=== PATIENT | male | born 1980 | race American Indian/Alaskan Native ===

== ENCOUNTER 2019-03-10 03:37 | Emergency (ER) | payer SELFPAY ==
[2019-03-10] MEDS ORDERED: ZOFRAN IV STA (05:13)
[2019-03-10] MEDS ORDERED: MORPHINE IV STA (05:13)
--- NOTE | 2019-03-10 05:48 | Cat Scan Report ---
CT HEAD WITHOUT CONTRAST INDICATION / CLINICAL INFORMATION: MAIN: Headache, Facial contusion and swelling. TECHNIQUE: All CT scans at this location are performed using CT dose reduction for ALARA by means of automated e xposure control. COMPARISON: None available. FINDINGS: HEMORRHAGE: None. EXTRA-AXIAL SPACES: Normal in size and morphology for the patient's age. VENTRICULAR SYSTEM: Normal in size and morphology for the patient's age. CEREBRAL PARENCHYMA: No significant abnormality. No acute territorial infarct. MIDLINE SHIFT OR HERNIATION: None. CEREBELLUM / BRAINSTEM: No significant abnormality. ORBITS: Normal as visualized. SOFT TISSUES of HEAD: No significant abnormality. CALVARIUM: No significant abnormality. PARANASAL SINUSES / MASTOID AIR CELLS: Normal as visualized. ADDITIONAL FINDINGS: None. IMPRESSION: 1. No acute intracranial abnormality. Signer Name: René Wilson MD Signed: 03/10/2019 5:44 AM Workstation Name: [id number]
--- NOTE | 2019-03-10 05:50 | Cat Scan Report ---
CT MAXILLOFACIAL WITHOUT CONTRAST INDICATION / CLINICAL INFORMATION: MAIN: HEADACHE, FACIAL CONTUSION AND SWELLING. TECHNIQUE: All CT scans at this location are performed using CT dose reduction for ALARA by means of automated e xposure control. COMPARISON: None available. FINDINGS: FACIAL BONES: No fracture or other significant abnormality. PARANASAL SINUSES: No significant abnormality. ORBITS: No significant abnormality. VISUALIZED INTRACRANIAL STRUCTURES: No significant abnormality. ADDITIONAL FINDINGS: None. IMPRESSION: 1. No significant abnormality. Signer Name: René Wilson MD Signed: 03/10/2019 5:46 AM Workstation Name: [id number]
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
== END 2019-03-10 06:40 | disposition home or self-care (01) ==
LOC: ED 03:37
DX: S06.9X9A Unspecified intracranial injury with loss of consciousness of unspecified duration, initial encounter (principal); S01.511A Laceration without foreign body of lip, initial encounter; I10 Essential (primary) hypertension; F12.10 Cannabis abuse, uncomplicated; Z79.899 Other long term (current) drug therapy; Y04.8XXA Assault by other bodily force, initial encounter; Y93.89 Activity, other specified; Y92.89 Other specified places as the place of occurrence of the external cause; Y99.8 Other external cause status
CPT/HCPCS: 70450; 70486; 96374; 96375; 99283; J2270; J2405

== ENCOUNTER 2021-10-12 10:23 | Emergency (ER) | payer SELFPAY ==
--- NOTE | 2021-10-12 11:43 | XRay Report ---
Right knee, 3 views HISTORY: Injury COMPARISON: None FINDINGS: No acute fracture or malalignment. No significant arthritis. No significant joint effusion. There is nonspecific mild prepatellar soft tissue swelling with suggestion of soft tissue injury of t he superficial infrapatellar soft tissues. No discrete radiopaque foreign body. Signer Name: Tony Kay MD Signed: 10/12/2021 11:39 AM Workstation Name: [id number]
[2021-10-12] MEDS ORDERED: KETOROLAC 10 MG TAB PO ONE (13:29)
[2021-10-12] MEDS ORDERED: TETANUS,DIPH,PERTUSS(ACELL) VACCINE 0.5 ML SYRINGE IM ONE (13:29)
[2021-10-12] MEDS ORDERED: SULFAMETHOXAZOLE/TRIMETHOPRIM 800/160MG DS TAB PO ONE (13:30)
[2021-10-12] MEDS ORDERED: ACETAMINOPHEN W/CODEINE 300-30 MG TAB PO ONE (13:30)
--- NOTE | 2021-10-12 13:59 | Emergency Department Report ---
- General Chief Complaint: Extremity Injury, Lower Stated Complaint: RT KNEE INJURY Time Seen by Provider: 10/12/21 12:39 Source: patient Mode of arrival: Ambulatory Limitations: No Limitations - History of Present Illness Initial Comments: 41-year-old black male with no past medical history presents to the emergency department for evaluation of right knee pain. He states that he was running last night in some bushes and fell in the bushes when he woke up this morning he noticed open wound to his right knee. He denies loss of consciousness. -: Sudden, days(s) (1) Extremity Location: Right: Knee Place: outdoors Patient Tetanus UTD: No Context: fall Associated Symptoms: pain - Related Data Previous Rx's Medication Instructions Recorded Last Taken Type Ketorolac [Toradol] 10 mg PO Q6H PRN #15 tablet 03/10/19 Unknown Rx traMADoL [Ultram] 50 mg PO Q6HR PRN #20 tablet 03/10/19 Unknown Rx Ibuprofen [Motrin 600 MG tab] 600 mg PO Q8H PRN #30 tablet 10/12/21 Unknown Rx Mupirocin [Bactroban 2%] 1 applic TP BID #1 tube 10/12/21 Unknown Rx Sulfamethoxazole/Trimethoprim 1 each PO BID #14 tab 10/12/21 Unknown Rx [Bactrim DS TAB] Allergies Allergy/AdvReac Type Severity Reaction Status Date / Time No Known Allergies Allergy Verified 10/12/21 11:11 ED Review of Systems ROS: Stated complaint: RT KNEE INJURY Other details as noted in HPI Constitutional: denies: chills, fever Respiratory: denies: shortness of breath, SOB with exertion, SOB at rest Cardiovascular: denies: chest pain, palpitations Gastrointestinal: denies: abdominal pain, nausea, vomiting Skin: other (Wound right knee) Neurological: denies: headache ED Past Medical Hx - Past Medical History Hx Hypertension: Yes - Social History Smoking Status: Never Smoker Substance Use Type: Alcohol, Marijuana - Medications Home Medications: Home Medications Medication Instructions Recorded Confirmed Last Taken Type Ketorolac [Toradol] 10 mg PO Q6H PRN #15 tablet 03/10/19 Unknown Rx traMADoL [Ultram] 50 mg PO Q6HR PRN #20 tablet 03/10/19 Unknown Rx Ibuprofen [Motrin 600 MG tab] 600 mg PO Q8H PRN #30 tablet 10/12/21 Unknown Rx Mupirocin [Bactroban 2%] 1 applic TP BID #1 tube 10/12/21 Unknown Rx Sulfamethoxazole/Trimethoprim 1 each PO BID #14 tab 10/12/21 Unknown Rx [Bactrim DS TAB] ED Physical Exam - General Limitations: No Limitations General appearance: alert, in no apparent distress - Head Head exam: Present: atraumatic, normocephalic - Eye Eye exam: Present: normal appearance. Absent: conjunctival injection - Neck Neck exam: Present: normal inspection. Absent: tenderness - Respiratory Respiratory exam: Absent: respiratory distress - Cardiovascular Cardiovascular Exam: Present: regular rate - GI/Abdominal GI/Abdominal exam: Absent: distended - Expanded Lower Extremity Exam Right Knee exam: Present: full ROM, tenderness, abrasion, erythema. Absent: normal inspection (Open wound to right knee 2.5 cm in diameter with most of skin missing), swelling Neuro vascular tendon exam: Present: no vascular compromise. Absent: pulse deficit, abnormal cap refill, motor deficit, sensory deficit, tendon deficit, extremity cold to touch - Back Exam Back exam: Present: normal inspection. Absent: tenderness - Neurological Exam Neurological exam: Present: alert, oriented X3 - Psychiatric Psychiatric exam: Present: normal affect, normal mood - Skin Skin exam: Present: warm, dry, normal color ED Course Vital Signs 10/12/21 11:09 Temperature 98.5 F Pulse Rate 76 Respiratory 20 Rate Blood Pressure 147/99 O2 Sat by Pulse 95 Oximetry ED Medical Decision Making - Radiology Data Radiology results: report reviewed, image reviewed Right knee x-ray: FINDINGS: No acute fracture or malalignment. No significant arthritis. No significant joint effusion. There is nonspecific mild prepatellar soft tissue swelling with suggestion of soft tissue injury of the superficial infrapatellar soft tissues. No discrete radiopaque foreign body. - Medical Decision Making 41-year-old black male with no past medical history presents to the emergency department for evaluation of right knee pain. He states that he was running last night in some bushes and fell in the bushes when he woke up this morning he noticed open wound to his right knee. He denies loss of consciousness. Right knee x-ray without any acute abnormalities noted. Right knee wound irrigated no foreign bodies noted. Most of skin scraped off, so wound unable to be sutured. Patient will have Tdap updated, wound dressed, and given pain medication. He will be discharged home with 7-day course of Bactrim and ibuprofen to use as needed for pain. Ice to take medications as prescribed and return to the emergency department if he notices any signs of infection. He verbalized understanding of and agreement with plan of care. Critical care attestation.: If time is entered above; I have spent that time in minutes in the direct care of this critically ill patient, excluding procedure time. ED Disposition Clinical Impression: Open wound of right knee Qualifiers: Encounter type: initial encounter Qualified Code(s): S81.001A - Unspecified open wound, right knee, initial encounter Disposition: HOME / SELF CARE / HOMELESS Is pt being admited?: No Does the pt Need Aspirin: No Condition: Stable Instructions: Wound Care, Adult Additional Instructions: Take medications as prescribed. Follow-up with primary care provider if no improvement or worsening symptoms. Return to the emergency department if you develop fever, worsening knee pain or swelling, or red streaks from the knee area. Prescriptions: Sulfamethoxazole/Trimethoprim [Bactrim DS TAB] 1 each PO BID #14 tab Mupirocin [Bactroban 2%] 1 applic TP BID #1 tube Ibuprofen [Motrin 600 MG tab] 600 mg PO Q8H PRN #30 tablet PRN Reason: Pain Referrals: NAVIN COOL MD [Referring] - 3-5 Days Time of Disposition: 13:58
[2021-10-12 16:31] VITALS: BP 130/82
== END 2021-10-12 16:29 | disposition home or self-care (01) ==
LOC: ED 10:23
DX: S81.001A Unspecified open wound, right knee, initial encounter (principal); X58.XXXA Exposure to other specified factors, initial encounter; Y93.89 Activity, other specified; Y92.89 Other specified places as the place of occurrence of the external cause; Y99.8 Other external cause status
CPT/HCPCS: 90471; 90715; 99283